=== PATIENT | female | born 1955 | race African-American/Black ===

== ENCOUNTER 2019-06-28 04:16 | Emergency (ER) | payer MEDICAID ==
[~2019-06-28] VITALS: Ht 160 cm; Wt 50.0 kg
[2019-06-28 04:23] VITALS: BP 165/80
[2019-06-28] MEDS ORDERED: ALBUTEROL (0.083%) 2.5MG/3ML NEB HHN STA (04:49)
[2019-06-28] MEDS ORDERED: IPRATROPIUM BROMIDE (0.02%) 0.5MG/2.5ML NEB HHN STA (04:49)
== END 2019-06-28 05:58 | disposition home or self-care (01) ==
LOC: ER 04:16
DX: J44.9 Chronic obstructive pulmonary disease, unspecified (principal); R07.89 Other chest pain; E11.9 Type 2 diabetes mellitus without complications
CPT/HCPCS: 99283; Z7610

== ENCOUNTER 2019-07-21 02:33 | Emergency (ER) | payer MEDICAID ==
[~2019-07-21] VITALS: Ht 160 cm; Wt 49.9 kg
[2019-07-21] MEDS ORDERED: IPRATROPIUM BROMIDE (0.02%) 0.5MG/2.5ML NEB HHN STA (03:08)
[2019-07-21] MEDS ORDERED: ALBUTEROL (0.083%) 2.5MG/3ML NEB HHN STA (03:08)
[2019-07-21] MEDS ORDERED: PREDNISONE 20MG TABLET PO STA (03:08)
[2019-07-21] MEDS ORDERED: ALBUTEROL 6.7GM HFA INHALER ORI ONE (04:15)
[2019-07-21] MEDS ORDERED: ACETAMINOPHEN 325MG TABLET PO ONE ×2 (06:15→09:00)
[2019-07-21 09:44] VITALS: BP 160/91
== END 2019-07-21 09:46 | disposition home or self-care (01) ==
LOC: ER 02:33
DX: J44.9 Chronic obstructive pulmonary disease, unspecified (principal); J45.909 Unspecified asthma, uncomplicated; E11.9 Type 2 diabetes mellitus without complications; R01.1 Cardiac murmur, unspecified; Z59.0 Homelessness; Z98.890 Other specified postprocedural states
CPT/HCPCS: 71045; 99284; J7512; Z7610

== ENCOUNTER 2019-07-29 02:24 | Emergency (ER) | payer MEDICAID ==
[~2019-07-29] VITALS: Ht 162.6 cm; Wt 59.0 kg
[2019-07-29] MEDS ORDERED: HYDROCODONE/ACETAMINOPHEN 5/325MG TABLET PO STA (03:24)
[2019-07-29] MEDS ORDERED: TETRACAINE 0.5% OPHTH DROPS 4ML RIGHTEYE ONE (03:30)
[2019-07-29 06:35] VITALS: BP 138/73
== END 2019-07-29 06:36 | disposition home or self-care (01) ==
LOC: ER 02:24
DX: S22.32XA Fracture of one rib, left side, initial encounter for closed fracture (principal); S27.9XXA Injury of unspecified intrathoracic organ, initial encounter; T26.91XA Corrosion of right eye and adnexa, part unspecified, initial encounter; Y04.0XXA Assault by unarmed brawl or fight, initial encounter; Y93.89 Activity, other specified; Y92.89 Other specified places as the place of occurrence of the external cause; Y99.8 Other external cause status
CPT/HCPCS: 71101; 99283

== ENCOUNTER 2019-08-11 02:21 | Emergency (ER) | payer MEDICAID ==
[~2019-08-11] VITALS: Ht 157.5 cm; Wt 58.0 kg
[2019-08-11] MEDS ORDERED: KETOROLAC 60MG/2ML VIAL IM ONE (02:45)
[2019-08-11] MEDS ORDERED: HYDROCODONE/ACETAMINOPHEN 5/325MG TABLET PO ONE (02:45)
[2019-08-11] MEDS ORDERED: IBUPROFEN 400MG TABLET PO ONE (09:15)
[2019-08-11 09:19] VITALS: BP 127/73
== END 2019-08-11 09:24 | disposition home or self-care (01) ==
LOC: ER 02:21
DX: S22.42XA Multiple fractures of ribs, left side, initial encounter for closed fracture (principal); E11.9 Type 2 diabetes mellitus without complications; J45.909 Unspecified asthma, uncomplicated; Y08.89XA Assault by other specified means, initial encounter; Y93.89 Activity, other specified; Y92.488 Other paved roadways as the place of occurrence of the external cause
CPT/HCPCS: 71101; 93005; 96372; 99285; J1885

== ENCOUNTER 2019-08-16 00:53 | Emergency (ER) | payer MEDICAID ==
[~2019-08-16] VITALS: Ht 167.6 cm; Wt 54.0 kg
[2019-08-16] MEDS ORDERED: KETOROLAC 30MG/ML VIAL IM STA (01:21)
[2019-08-16 02:00] LABS: CHLORIDE 111 mEq/L (98-107)
[2019-08-16 02:26] LABS: BASOPHILS % 0.6 % (0.0-2.0); EOSINOPHILS % 0.9 % (0.0-5.0); HEMATOCRIT. 42.5 % (36.0-48.0); HEMOGLOBIN. 15.1 g/dL (12.0-16.0); LYMPHOCYTES % 66.8 % (20.0-50.0); MEAN CORPUSCULAR HEMOGLOBIN 37.8 pg (28.0-32.0); MEAN CORPUSCULAR VOLUME 106.5 fL (81.0-99.0); MEAN PLATELET VOLUME 8.8 fl (7.4-10.4); MONOCYTES % 9.1 % (2.0-8.0); NEUTROPHILS % 22.6 % (40.0-76.0); PLATELET 182 x1000/uL (130-400); RED BLOOD CELL COUNT 3.99 mill/uL (4.2-5.4); RED CELL DISTRIBUTION WIDTH 13.5 % (11.6-14.6)
[2019-08-16] MEDS ORDERED: ACETAMINOPHEN WITH CODEINE 300/30MG TABLET PO ONE (03:15)
[2019-08-16 06:08] VITALS: BP 126/80
== END 2019-08-16 06:20 | disposition home or self-care (01) ==
LOC: ER 00:53
DX: S22.32XA Fracture of one rib, left side, initial encounter for closed fracture (principal); S27.9XXA Injury of unspecified intrathoracic organ, initial encounter; J45.909 Unspecified asthma, uncomplicated; E11.9 Type 2 diabetes mellitus without complications; W18.30XA Fall on same level, unspecified, initial encounter; Y93.89 Activity, other specified; Y92.89 Other specified places as the place of occurrence of the external cause; Y99.8 Other external cause status
CPT/HCPCS: 36415; 71045; 80053; 82962; 84484; 85025; 93005; 96372; 99285; J1885

== ENCOUNTER 2019-10-14 21:38 | Emergency (ER) | payer MEDICAID ==
[~2019-10-14] VITALS: Ht 167.6 cm; Wt 50.0 kg
[2019-10-14] MEDS ORDERED: LORAZEPAM 2MG/ML CPJ IV ONE (22:45)
[2019-10-14 23:04] LABS: HEMATOCRIT. 39.5 % (36.0-48.0); HEMOGLOBIN. 13.7 g/dL (12.0-16.0); MEAN CORPUSCULAR HEMOGLOBIN 37.7 pg (28.0-32.0); MEAN CORPUSCULAR VOLUME 108.6 fL (81.0-99.0); MEAN PLATELET VOLUME 8.7 fl (7.4-10.4); PLATELET 151 x1000/uL (130-400); RED BLOOD CELL COUNT 3.64 mill/uL (4.2-5.4); RED CELL DISTRIBUTION WIDTH 12.8 % (11.6-14.6)
[2019-10-14 23:12] LABS: CHLORIDE 111 mEq/L (98-107)
[2019-10-14 23:16] LABS: ETHANOL BLOOD 182 mg/dL
[2019-10-14 23:30] LABS: PLATELET ESTIMATE NORMAL
[2019-10-15 06:00] VITALS: BP 116/67
[2019-10-15 07:55] LABS: PROTHROMBIN TIME 10.3 sec (9.6-11.0)
== END 2019-10-15 10:57 | disposition home or self-care (01) ==
LOC: ER 21:38
DX: F10.129 Alcohol abuse with intoxication, unspecified (principal); S00.81XA Abrasion of other part of head, initial encounter; E11.9 Type 2 diabetes mellitus without complications; J45.909 Unspecified asthma, uncomplicated; Y90.6 Blood alcohol level of 120-199 mg/100 ml; Z59.0 Homelessness; X58.XXXA Exposure to other specified factors, initial encounter; Y93.89 Activity, other specified; Y92.89 Other specified places as the place of occurrence of the external cause
CPT/HCPCS: 36415; 70450; 80053; 80320; 85025; 85610; 93005; 96374; 99285; J2060; G0480

== ENCOUNTER 2019-10-31 10:56 | Emergency (ER) | payer MEDICAID ==
[~2019-10-31] VITALS: Ht 157.5 cm; Wt 55.0 kg
[2019-10-31 11:02] VITALS: BP 106/68
[2019-10-31] MEDS ORDERED: LORAZEPAM 0.5MG TABLET PO ONE (11:30)
[2019-10-31] MEDS ORDERED: ACETAMINOPHEN 325MG TABLET PO ONE (11:30)
== END 2019-10-31 12:37 | disposition home or self-care (01) ==
LOC: ER 10:56
DX: M79.10 Myalgia, unspecified site (principal); E11.9 Type 2 diabetes mellitus without complications; J45.909 Unspecified asthma, uncomplicated; F15.10 Other stimulant abuse, uncomplicated; F14.10 Cocaine abuse, uncomplicated; Z59.0 Homelessness
CPT/HCPCS: 99283

== ENCOUNTER 2019-11-17 00:31 | Inpatient (IN) | payer MEDICAID ==
[~2019-11-17] VITALS: Ht 160 cm; Wt 45.8 kg
[2019-11-17] MEDS ORDERED: ASPIRIN 81MG TABLET PO ONE (01:45)
[2019-11-17 02:33] LABS: BASOPHILS % 0.5 % (0.0-2.0); HEMATOCRIT. 41.6 % (36.0-48.0); HEMOGLOBIN. 14.5 g/dL (12.0-16.0); LYMPHOCYTES % 67.2 % (20.0-50.0); MEAN CORPUSCULAR HEMOGLOBIN 36.6 pg (28.0-32.0); MEAN CORPUSCULAR VOLUME 105.1 fL (81.0-99.0); MEAN PLATELET VOLUME 8.7 fl (7.4-10.4); MONOCYTES % 6.3 % (2.0-8.0); PLATELET 156 x1000/uL (130-400); RED BLOOD CELL COUNT 3.96 mill/uL (4.2-5.4)
[2019-11-17 02:36] LABS: CHLORIDE 112 mEq/L (98-107)
[2019-11-17 02:40] LABS: ETHANOL BLOOD < 10 mg/dL; PROTHROMBIN TIME 10.2 sec (9.6-11.0)
[2019-11-17 02:44] LABS: CREATINE KINASE 125 IU/L (26-192)
[2019-11-17] MEDS ORDERED: ASPIRIN 81MG TABLET PO SCH (06:00)
[2019-11-17 08:22] LABS: CLARITY URINE TURBID (CLEAR); COLOR URINE YELLOW (YELLOW); KETONES URINE NEGATIVE (NEGATIVE); LEUKOCYTE ESTERASE URINE 3+ (NEGATIVE); NITRITE URINE NEGATIVE (NEGATIVE); OCCULT BLOOD URINE 2+ (NEGATIVE); PH URINE 5.5 (4.5-8.0); PROTEIN URINE TRACE (NEGATIVE); SPECIFIC GRAVITY URINE 1.024 (1.005-1.030); UROBILINOGEN URINE 0.2 E.U./dL (0.2-1.0)
[2019-11-17 08:30] VITALS: BP 128/83
[2019-11-17 08:47] LABS: *AMPHETAMINES SCREEN URINE NEGATIVE (NEGATIVE); *BARBITURATES SCREEN URINE NEGATIVE (NEGATIVE)
[2019-11-17 08:48] LABS: *BENZODIAZEPINES SCREEN URINE NEGATIVE (NEGATIVE); *COCAINE SCREEN URINE PRESUMTIVE POSITIVE (NEGATIVE); CANNABINOID URINE SCREEN NEGATIVE (NEGATIVE); METHADONE URINE SCREEN NEGATIVE (NEGATIVE); OPIATES URINE SCREEN NEGATIVE (NEGATIVE); PHENCYCLIDINE URINE SCREEN PRESUMTIVE POSITIVE (NEGATIVE)
[2019-11-17] MEDS ORDERED: ONDANSETRON HCL 4MG/2ML INJ IV PRN (09:00)
[2019-11-17] MEDS ORDERED: CEFTRIAXONE 1 G PREMIX 50 ML IV SCH (09:00)
[2019-11-17] MEDS: ENOXAPARIN 40MG/0.4ML SYR SUBCUT SCH (10:03)
[2019-11-17] MEDS: ASPIRIN 81MG TABLET PO SCH (10:03)
[2019-11-17] MEDS: KETOROLAC 30MG/ML VIAL IV PRN (10:09)
[2019-11-17 10:50] LABS: LDL CHOLESTEROL 66 mg/dL (5-100)
[2019-11-17 10:54] LABS: HDL CHOLESTEROL 37 mg/dL (40-59)
[2019-11-17] MEDS: CEFTRIAXONE 1,000 MG in DEXTROSE 5% WATER 50 ML IV SCH (11:04)
[2019-11-17 12:00] VITALS: BP 124/76
[2019-11-17 16:00] VITALS: BP 131/80
[2019-11-17 20:00] VITALS: BP 118/79
[2019-11-18] VITALS: BP 130/85
[2019-11-18] MEDS: ACETAMINOPHEN 325MG TABLET PO PRN ×2 (05:58→18:48)
[2019-11-18 08:00] VITALS: BP 142/85
[2019-11-18] MEDS: ASPIRIN 81MG TABLET PO SCH (08:32)
[2019-11-18] MEDS: ENOXAPARIN 40MG/0.4ML SYR SUBCUT SCH (08:32)
[2019-11-18] MEDS: CEFTRIAXONE 1,000 MG in DEXTROSE 5% WATER 50 ML IV SCH (10:36)
[2019-11-18 12:00] VITALS: BP 118/80
[2019-11-18] MEDS: KETOROLAC 30MG/ML VIAL IV PRN (15:01)
[2019-11-18 16:00] VITALS: BP 112/73
[2019-11-18 20:00] VITALS: BP 131/72
[2019-11-19] VITALS: BP 114/64
[2019-11-19 03:12] VITALS: BP 111/83
[2019-11-19] MEDS: KETOROLAC 30MG/ML VIAL IV PRN ×2 (03:12→09:57)
[2019-11-19 08:00] VITALS: BP 138/65
[2019-11-19] MEDS: ENOXAPARIN 40MG/0.4ML SYR SUBCUT SCH (09:06)
[2019-11-19] MEDS: ASPIRIN 81MG TABLET PO SCH (09:06)
[2019-11-19] MEDS: CEFTRIAXONE 1,000 MG in DEXTROSE 5% WATER 50 ML IV SCH (11:00)
[2019-11-19 11:27] LABS: BASOPHILS % 0.5 % (0.0-2.0); EOSINOPHILS % 1.3 % (0.0-5.0); HEMATOCRIT. 39.6 % (36.0-48.0); HEMOGLOBIN. 13.9 g/dL (12.0-16.0); LYMPHOCYTES % 66.6 % (20.0-50.0); MEAN CORPUSCULAR HEMOGLOBIN 36.9 pg (28.0-32.0); MEAN PLATELET VOLUME 9.3 fl (7.4-10.4); MONOCYTES % 7.4 % (2.0-8.0); NEUTROPHILS % 24.2 % (40.0-76.0); PLATELET 135 x1000/uL (130-400); RED BLOOD CELL COUNT 3.77 mill/uL (4.2-5.4); RED CELL DISTRIBUTION WIDTH 12.2 % (11.6-14.6)
[2019-11-19 12:00] VITALS: BP 139/71
[2019-11-19 12:34] LABS: CHLORIDE 107 mEq/L (98-107)
[2019-11-19 16:00] VITALS: BP 139/76
[2019-11-19 16:29] VITALS: BP 135/89
== END 2019-11-19 17:02 | disposition home or self-care (01) | DRG 816 ==
LOC: ER 00:31 → 7WST 02:55 → ENRESERV 07:16 → 5WST 11-18 14:09 → 5EST 11-18 14:17 → 5WST 11-18 14:36
PROVIDERS: ADMIT Internal Medicine; ATTEND Internal Medicine
DX: T40.5X1A Poisoning by cocaine, accidental (unintentional), initial encounter (principal); F10.10 Alcohol abuse, uncomplicated; Y90.9 Presence of alcohol in blood, level not specified; F14.10 Cocaine abuse, uncomplicated; I10 Essential (primary) hypertension; E11.9 Type 2 diabetes mellitus without complications; J44.9 Chronic obstructive pulmonary disease, unspecified; F16.90 Hallucinogen use, unspecified, uncomplicated; F17.210 Nicotine dependence, cigarettes, uncomplicated; E87.8 Other disorders of electrolyte and fluid balance, not elsewhere classified; N39.0 Urinary tract infection, site not specified; Z59.0 Homelessness; Z71.41 Alcohol abuse counseling and surveillance of alcoholic; Z71.51 Drug abuse counseling and surveillance of drug abuser; Y92.89 Other specified places as the place of occurrence of the external cause; Z68.1 Body mass index [BMI] 19.9 or less, adult; Z03.818 Encounter for observation for suspected exposure to other biological agents ruled out
CPT/HCPCS: 36415; 71045; 80048; 80053; 80061; 80305; 80320; 81003; 82550; 82962; 83036; 83880; 84443; 84484; 85025; 87635; 93005; 99285; J0696; J1650; J1885; J7060; G0480

== ENCOUNTER 2019-11-19 23:55 | Emergency (ER) | payer MEDICAID ==
[~2019-11-19] VITALS: Ht 165.1 cm; Wt 54.0 kg
[2019-11-20] MEDS ORDERED: ASPIRIN 81MG TABLET PO ONE (02:00)
[2019-11-20 02:47] LABS: BASOPHILS % 0.3 % (0.0-2.0); HEMATOCRIT. 43.8 % (36.0-48.0); HEMOGLOBIN. 15.3 g/dL (12.0-16.0); LYMPHOCYTES % 62.3 % (20.0-50.0); MEAN CORPUSCULAR HEMOGLOBIN 36.6 pg (28.0-32.0); MEAN CORPUSCULAR VOLUME 105.1 fL (81.0-99.0); MONOCYTES % 6.5 % (2.0-8.0); NEUTROPHILS % 29.9 % (40.0-76.0); PLATELET 152 x1000/uL (130-400); RED BLOOD CELL COUNT 4.17 mill/uL (4.2-5.4); RED CELL DISTRIBUTION WIDTH 12.3 % (11.6-14.6)
[2019-11-20 02:54] LABS: CHLORIDE 105 mEq/L (98-107)
[2019-11-20 06:30] VITALS: BP 119/70
== END 2019-11-20 08:52 | disposition home or self-care (01) ==
LOC: ER 23:55
DX: R05 Cough (principal); R07.89 Other chest pain; Z59.0 Homelessness; E11.9 Type 2 diabetes mellitus without complications; I10 Essential (primary) hypertension
CPT/HCPCS: 36415; 71045; 80053; 83880; 84484; 85025; 93005; 99285; Z7610

== ENCOUNTER 2019-12-08 03:35 | Emergency (ER) | payer MEDICAID ==
[~2019-12-08] VITALS: Ht 157.5 cm; Wt 53.0 kg
[2019-12-08 04:59] LABS: BASOPHILS % 0.8 % (0.0-2.0); EOSINOPHILS % 2.6 % (0.0-5.0); HEMATOCRIT. 39.4 % (36.0-48.0); HEMOGLOBIN. 13.6 g/dL (12.0-16.0); LYMPHOCYTES % 68.5 % (20.0-50.0); MEAN CORPUSCULAR HEMOGLOBIN 36.5 pg (28.0-32.0); MEAN CORPUSCULAR VOLUME 105.6 fL (81.0-99.0); MEAN PLATELET VOLUME 8.4 fl (7.4-10.4); MONOCYTES % 6.4 % (2.0-8.0); NEUTROPHILS % 21.7 % (40.0-76.0); PLATELET 167 x1000/uL (130-400); RED BLOOD CELL COUNT 3.73 mill/uL (4.2-5.4); RED CELL DISTRIBUTION WIDTH 11.8 % (11.6-14.6)
[2019-12-08 05:03] LABS: CHLORIDE 112 mEq/L (98-107)
[2019-12-08 05:37] LABS: CLARITY URINE CLEAR (CLEAR); COLOR URINE YELLOW (YELLOW); KETONES URINE NEGATIVE (NEGATIVE); LEUKOCYTE ESTERASE URINE 3+ (NEGATIVE); NITRITE URINE NEGATIVE (NEGATIVE); OCCULT BLOOD URINE TRACE (NEGATIVE); PROTEIN URINE NEGATIVE (NEGATIVE); SPECIFIC GRAVITY URINE 1.011 (1.005-1.030); UROBILINOGEN URINE 0.2 E.U./dL (0.2-1.0)
[2019-12-08 06:25] VITALS: BP 109/69
== END 2019-12-08 07:05 | disposition home or self-care (01) ==
LOC: EDUNIT# 03:35 → ER 03:56
DX: N39.0 Urinary tract infection, site not specified (principal); F16.10 Hallucinogen abuse, uncomplicated; I10 Essential (primary) hypertension; E11.9 Type 2 diabetes mellitus without complications; J45.909 Unspecified asthma, uncomplicated; F12.10 Cannabis abuse, uncomplicated
CPT/HCPCS: 36415; 71045; 80053; 81003; 85025; 93005; 99285

== ENCOUNTER 2020-06-19 17:05 | Emergency (ER) | payer MEDICAID, OTHER ==
[~2020-06-19] VITALS: Ht 165.1 cm; Wt 61.0 kg
[2020-06-19 17:08] VITALS: BP 136/70
== END 2020-06-19 18:19 | disposition home or self-care (01) ==
LOC: ER 17:05
DX: F10.929 Alcohol use, unspecified with intoxication, unspecified (principal); F12.10 Cannabis abuse, uncomplicated; F16.10 Hallucinogen abuse, uncomplicated; E11.9 Type 2 diabetes mellitus without complications; I10 Essential (primary) hypertension; J45.909 Unspecified asthma, uncomplicated
CPT/HCPCS: 99283

== ENCOUNTER 2020-07-04 01:51 | Emergency (ER) | payer MEDICAID, OTHER ==
[~2020-07-04] VITALS: Ht 172.7 cm; Wt 82.0 kg
[2020-07-04] MEDS ORDERED: METHYLPREDNISOLONE SOD SUCC 125 MG/2 ML VIAL IV STA (02:14)
[2020-07-04] MEDS ORDERED: ALBUTEROL (0.083%) 2.5MG/3ML NEB HHN STA (02:14)
[2020-07-04] MEDS ORDERED: IPRATROPIUM BROMIDE (0.02%) 0.5MG/2.5ML NEB HHN STA (02:14)
[2020-07-04 03:03] LABS: BASOPHILS % 0.6 % (0.0-2.0); EOSINOPHILS % 3.7 % (0.0-5.0); HEMATOCRIT. 41.2 % (36.0-48.0); HEMOGLOBIN. 14.3 g/dL (12.0-16.0); LYMPHOCYTES % 60.4 % (20.0-50.0); MEAN CORPUSCULAR HEMOGLOBIN 35.4 pg (28.0-32.0); MEAN CORPUSCULAR VOLUME 101.9 fL (81.0-99.0); MONOCYTES % 6.5 % (2.0-8.0); NEUTROPHILS % 28.8 % (40.0-76.0); PLATELET 165 x1000/uL (130-400); RED BLOOD CELL COUNT 4.04 mill/uL (4.2-5.4); RED CELL DISTRIBUTION WIDTH 14.1 % (11.6-14.6)
[2020-07-04 03:06] LABS: CHLORIDE 110 mEq/L (98-107)
[2020-07-04 03:30] LABS: CLARITY URINE CLEAR (CLEAR); COLOR URINE YELLOW (YELLOW); KETONES URINE NEGATIVE (NEGATIVE); LEUKOCYTE ESTERASE URINE 1+ (NEGATIVE); NITRITE URINE NEGATIVE (NEGATIVE); OCCULT BLOOD URINE TRACE (NEGATIVE); PROTEIN URINE TRACE (NEGATIVE); SPECIFIC GRAVITY URINE 1.027 (1.005-1.030)
[2020-07-04] MEDS ORDERED: ALBU6.7H9 INH (04:10)
[2020-07-04] MEDS ORDERED: P50 MT (04:12)
[2020-07-04 04:13] VITALS: BP 111/63
== END 2020-07-04 04:43 | disposition home or self-care (01) ==
LOC: ER 01:51
DX: J45.901 Unspecified asthma with (acute) exacerbation (principal); F15.10 Other stimulant abuse, uncomplicated; F16.10 Hallucinogen abuse, uncomplicated; E11.9 Type 2 diabetes mellitus without complications; I10 Essential (primary) hypertension
CPT/HCPCS: 36415; 71045; 80053; 81003; 82962; 85025; 93005; 94640; 96374; 99285; J2930; Z7610

== ENCOUNTER 2020-07-21 03:33 | Emergency (ER) | payer MEDICAID, OTHER ==
[~2020-07-21] VITALS: Ht 157.5 cm; Wt 59.0 kg
[~2020-07-21 03:33] MED LIST: ALBU6.7H9 INH; P50 MT
[2020-07-21] MEDS ORDERED: ASPIRIN 81MG TABLET PO ONE (05:30)
[2020-07-21] MEDS ORDERED: NITROGLYCERIN 0.4MG TABLET SL SL PRN (05:30)
[2020-07-21 05:47] LABS: BASOPHILS % 0.7 % (0.0-2.0); EOSINOPHILS % 1.1 % (0.0-5.0); HEMATOCRIT. 43.9 % (36.0-48.0); HEMOGLOBIN. 14.7 g/dL (12.0-16.0); LYMPHOCYTES % 48.6 % (20.0-50.0); MEAN CORPUSCULAR HEMOGLOBIN 35.1 pg (28.0-32.0); MEAN CORPUSCULAR VOLUME 104.6 fL (81.0-99.0); MEAN PLATELET VOLUME 8.6 fl (7.4-10.4); MONOCYTES % 11.2 % (2.0-8.0); NEUTROPHILS % 38.4 % (40.0-76.0); PLATELET 207 x1000/uL (130-400); RED CELL DISTRIBUTION WIDTH 14.1 % (11.6-14.6)
[2020-07-21 05:55] LABS: CHLORIDE 110 mEq/L (98-107)
[2020-07-21 05:59] LABS: ETHANOL BLOOD < 10 mg/dL
[2020-07-21] MEDS ORDERED: IPRATROPIUM/ALBUTEROL 0.5-3(2.5)MG/3ML NEB HHN ONE (06:30)
[2020-07-21] MEDS ORDERED: PREDNISONE 20MG TABLET PO ONE (06:30)
[2020-07-21] MEDS ORDERED: ALBU6.7H9 INH (08:56)
[2020-07-21] MEDS ORDERED: P50 MT ×3 (08:57→09:13)
[2020-07-21] MEDS ORDERED: FLUT1DIS3 IH (08:58)
[2020-07-21] MEDS ORDERED: METF-414 MT ×3 (08:59→09:12)
[2020-07-21 09:22] VITALS: BP 120/76
== END 2020-07-21 09:23 | disposition home or self-care (01) ==
LOC: ER 03:33
DX: J44.1 Chronic obstructive pulmonary disease with (acute) exacerbation (principal); I10 Essential (primary) hypertension; E11.9 Type 2 diabetes mellitus without complications; F17.210 Nicotine dependence, cigarettes, uncomplicated
CPT/HCPCS: 36415; 71045; 80053; 80320; 83880; 84484; 85025; 93005; 94640; 99285; J7512; Z7610; G0480

== ENCOUNTER 2020-08-11 04:42 | Emergency (ER) | payer OTHER ==
[~2020-08-11] VITALS: Ht 152.4 cm; Wt 61.0 kg
[~2020-08-11 04:42] MED LIST changes: +FLUT1DIS3 IH; +METF-414 MT
[2020-08-11 08:58] LABS: BASOPHILS % 0.7 % (0.0-2.0); EOSINOPHILS % 0.9 % (0.0-5.0); HEMATOCRIT. 42.8 % (36.0-48.0); HEMOGLOBIN. 15.1 g/dL (12.0-16.0); LYMPHOCYTES % 66.5 % (20.0-50.0); MEAN CORPUSCULAR HEMOGLOBIN 36.7 pg (28.0-32.0); MEAN CORPUSCULAR VOLUME 103.9 fL (81.0-99.0); MEAN PLATELET VOLUME 8.8 fl (7.4-10.4); MONOCYTES % 7.1 % (2.0-8.0); NEUTROPHILS % 24.8 % (40.0-76.0); PLATELET 180 x1000/uL (130-400); RED BLOOD CELL COUNT 4.12 mill/uL (4.2-5.4); RED CELL DISTRIBUTION WIDTH 14.1 % (11.6-14.6)
[2020-08-11 09:05] LABS: CHLORIDE 108 mEq/L (98-107)
[2020-08-11] MEDS ORDERED: LORAZEPAM 0.5MG TABLET PO ONE (09:30)
[2020-08-11 12:30] VITALS: BP 132/80
== END 2020-08-11 13:14 | disposition home or self-care (01) ==
LOC: ER 04:42
DX: R07.89 Other chest pain (principal); J44.9 Chronic obstructive pulmonary disease, unspecified; J45.909 Unspecified asthma, uncomplicated; E11.9 Type 2 diabetes mellitus without complications; I10 Essential (primary) hypertension
CPT/HCPCS: 36415; 71045; 80053; 83880; 84484; 85025; 93005; 99285

== ENCOUNTER 2020-08-24 11:55 | Emergency (ER) | payer OTHER ==
[~2020-08-24] VITALS: Ht 162.6 cm; Wt 70.0 kg
[2020-08-24] MEDS ORDERED: AZIT250T12 MT (12:37)
[2020-08-24] MEDS ORDERED: ALBU6.7H9 INH (12:37)
[2020-08-24] MEDS ORDERED: IBUPROFEN 800MG TABLET PO ONE (12:45)
[2020-08-24 12:49] VITALS: BP 130/78
== END 2020-08-24 12:50 | disposition home or self-care (01) ==
LOC: ER 12:03
DX: J11.1 Influenza due to unidentified influenza virus with other respiratory manifestations (principal); J44.1 Chronic obstructive pulmonary disease with (acute) exacerbation; E11.9 Type 2 diabetes mellitus without complications; J45.909 Unspecified asthma, uncomplicated; Z79.899 Other long term (current) drug therapy
CPT/HCPCS: 71045; 99283

== ENCOUNTER 2020-09-04 02:16 | Emergency (ER) | payer OTHER ==
[~2020-09-04] VITALS: Ht 165.1 cm; Wt 79.0 kg
[~2020-09-04 02:16] MED LIST changes: +AZIT250T12 MT
[2020-09-04 02:18] VITALS: BP 155/82
[2020-09-04] MEDS ORDERED: TETANUS, DIPHTHERIA, PERTUSSIS VAC/PF 0.5ML (>7YR OLD) IM ONE (02:45)
[2020-09-04] MEDS ORDERED: BACITRACIN ZINC OINT UDPKT TOP ONE (02:45)
[2020-09-04] MEDS ORDERED: ACETAMINOPHEN 325MG TABLET PO ONE (02:45)
[2020-09-04] MEDS ORDERED: TOPUD MT (04:41)
== END 2020-09-04 05:36 | disposition home or self-care (01) ==
LOC: ER 02:16
DX: S80.01XA Contusion of right knee, initial encounter (principal); R05 Cough; J45.909 Unspecified asthma, uncomplicated; E11.9 Type 2 diabetes mellitus without complications; I10 Essential (primary) hypertension; Z79.899 Other long term (current) drug therapy; W01.0XXA Fall on same level from slipping, tripping and stumbling without subsequent striking against object, initial encounter; Y93.89 Activity, other specified; Y92.89 Other specified places as the place of occurrence of the external cause; Y99.8 Other external cause status
CPT/HCPCS: 71045; 73562; 90471; 90715; 99284